=== PATIENT | male | born 1995 | race Two or more races ===

== ENCOUNTER 2016-12-26 13:33 | Emergency (ER) | payer OTHER ==
[~2016-12-26] VITALS: Ht 182.9 cm; Wt 73.1 kg
[2016-12-26 13:34] VITALS: BP 144/81
[2016-12-26] MEDS ORDERED: MAALOX/HYOSCYAMINE/LIDOCAINE 45 ML BTL PO ONE (14:30)
[2016-12-26] MEDS ORDERED: MAALOX/HYOSCYAMINE/LIDOCAINE 45 ML BTL ONE (14:45)
[2016-12-26] MEDS ORDERED: OMNIPAQUE 350 MG/ML, 150 ML BOTTLE ONE (14:51)
== END 2016-12-26 15:34 | disposition home or self-care (01) ==
LOC: ED 14:00
DX: S27.818A Other injury of esophagus (thoracic part), initial encounter (principal); X58.XXXA Exposure to other specified factors, initial encounter; Y93.89 Activity, other specified; Y92.89 Other specified places as the place of occurrence of the external cause; Y99.8 Other external cause status
CPT/HCPCS: 71010; 74220; 99284; Q9967